=== PATIENT | female | born 1975 | race Caucasian/White ===

== ENCOUNTER 2018-08-13 02:41 | Inpatient (IN) | payer BC ==
[~2018-08-13] VITALS: Ht 154.9 cm; Wt 59.0 kg
[2018-08-13 02:51] VITALS: Ht 154.9 cm; Wt 59.0 kg
[2018-08-13 03:10] LABS: BASOPHIL % 0.6 % (0-2); PLATELET COUNT 281 x10^3mcL (130-400); RED CELL DISTRIBUTION WIDTH 14.5 % (11.5-14.5)
[2018-08-13 03:20] LABS: microscopic required? NO
[2018-08-13 03:23] LABS: CALCIUM 8.5 mg/dL (8.5-10.1); CARBON DIOXIDE 22.7 mmol/L (21-32); CHLORIDE SERUM 106 mmol/L (98-107); CREATININE SERUM 0.7 mg/dL (0.6-1.0); GFR1 > 60 mL/min; GLUCOSE SERUM 92 mg/dL (74-106); POTASSIUM SERUM 3.7 mmol/L (3.5-5.1); SODIUM SERUM 141 mmol/L (136-145)
[2018-08-13 03:36] LABS: ALBUMIN 3.8 g/dL (3.4-5.0); ALKALINE PHOSPHATASE 52 U/L (46-116); ALT/SGPT 16 U/L (14-59); AST/SGOT 14 U/L (15-37); BILIRUBIN TOTAL 0.1 mg/dL (0.20-1.00); FREE T4 0.79 ng/dL (0.76-1.46); TOTAL PROTEIN, SERUM 7.6 g/dL (6.4-8.2)
[2018-08-13 03:55] LABS: UA SPECIFIC GRAVITY <=1.005 (1.005-1.035); urine erythrocyte NEGATIVE (NEGATIVE)
[2018-08-13 04:08] LABS: AMPHETAMINE QUAL UR NONE DETECTED (See below)
[2018-08-13] MEDS ORDERED: DESMOPRESSIN A0.1 MG PO (10:17)
[2018-08-13] MEDS ORDERED: PROZAC40 MG (10:17)
[2018-08-13] MEDS ORDERED: VALIUM2 MG (10:17)
[2018-08-13 11:27] VITALS: BP 109/53
[2018-08-13 17:00] VITALS: BP 105/48
[2018-08-13 21:26] VITALS: BP 104/60
[2018-08-14 05:54] VITALS: BP 120/52
[2018-08-14 06:28] LABS: BASOPHIL % 0.6 % (0-2); PLATELET COUNT 230 x10^3mcL (130-400)
[2018-08-14 06:37] LABS: RED CELL DISTRIBUTION WIDTH 15.8 % (11.5-14.5)
[2018-08-14 06:43] LABS: CALCIUM 8.2 mg/dL (8.5-10.1); CARBON DIOXIDE 24.7 mmol/L (21-32); CHLORIDE SERUM 104 mmol/L (98-107); CREATININE SERUM 0.6 mg/dL (0.6-1.0); GFR1 > 60 mL/min; GLUCOSE SERUM 85 mg/dL (74-106); MAGNESIUM 2.1 mg/dL (1.8-2.4); PHOSPHOROUS 3.1 mg/dL (2.5-4.9); POTASSIUM SERUM 3.6 mmol/L (3.5-5.1); SODIUM SERUM 136 mmol/L (136-145)
[2018-08-14 08:58] VITALS: BP 116/43
[2018-08-14 12:44] VITALS: BP 143/83
[2018-08-14 17:51] VITALS: BP 109/55
[2018-08-14 18:38] VITALS: BP 109/55
== END 2018-08-14 19:00 | disposition home or self-care (01) | DRG 917 ==
LOC: ED 02:41 → MU 08:09 → DU 08:09 → MU 10:42 → DU 19:12
PROVIDERS: Emergency Medicine; Internal Medicine
DX: T51.91XA Toxic effect of unspecified alcohol, accidental (unintentional), initial encounter (principal); G92 Toxic encephalopathy; E23.2 Diabetes insipidus; F33.1 Major depressive disorder, recurrent, moderate; F10.929 Alcohol use, unspecified with intoxication, unspecified; Y92.89 Other specified places as the place of occurrence of the external cause; Y90.0 Blood alcohol level of less than 20 mg/100 ml; F41.1 Generalized anxiety disorder; Z90.711 Acquired absence of uterus with remaining cervical stump; Z88.2 Allergy status to sulfonamides; Z88.8 Allergy status to other drugs, medicaments and biological substances
CPT/HCPCS: 83880; 84439; G0480; J1630; J2060